=== PATIENT | female | born 1990 | race Hispanic/Latino ===

== ENCOUNTER 2020-09-21 09:02 | Outpatient (CLI) | payer MEDICAID, OTHER ==
--- NOTE | 2020-09-21 09:51 | ULT ---
EXAM: OB ultrasound COMPARISON: None HISTORY: female. Evaluate size, dates, and anatomy. TECHNIQUE: Multiplanar grayscale and color Doppler images were obtained in a transabdominal ult rasound. FINDINGS: There is a single live intrauterine with heart rate of 150 bpm. A survey wa s performed which is unremarkable. The head, intracranial structures, heart, stomach, kidneys, umbilical cord, umbilical cord insertion, spine, face, and extremities were evaluated and were unrema rkable. Estimated weight is 320 g. Average age of the fetus based off today's examination is 20 weeks 0 days. BPD 4.68 cm -- 20 weeks 2 days HC 17.21 cm -- 19 weeks 6 days AC 14.88 cm -- 20 weeks 1 day FL 3.11 cm -- 19 weeks 5 days The placenta is anterior in location without focal abnormality. SHITAL is 14.64 cm which is normal. The cervix is normal in length. There is no evidence of placenta previa. The adnexa structures of the mother were unable to be assessed given the gestational age. IMPRESSION: Single live intrauterine with estimated age of 20 weeks 0 days.
== END 2020-09-21 09:03 | disposition home or self-care (01) ==
LOC: BICULT 09:02
PROVIDERS: ATTEND Family Medicine
DX: Z34.82 Encounter for supervision of other normal pregnancy, second trimester (principal); Z3A.20 20 weeks gestation of pregnancy
CPT/HCPCS: 76805

== ENCOUNTER 2022-08-08 16:31 | Outpatient (CLI) | payer OTHER | END 2022-08-08 16:32 | disposition home or self-care (01) | LOC: BICRAD 16:31 | PROVIDERS: ATTEND Family Medicine | DX: M79.671 Pain in right foot (principal) ==